=== PATIENT | male | born 1955 | race Caucasian/White ===

== ENCOUNTER 2019-09-09 15:02 | Observation (INO) | payer BC, OTHER ==
[2019-09-09 21:55] VITALS: RESP 16
[2019-09-10 11:46] VITALS: BP 106/58; PULSE 89; TEMP 98.2
== END 2019-09-10 16:30 | disposition home or self-care (01) ==
LOC: EC 15:02 → 5NMEDONC 15:48 → INTOOBSV 15:48 → 5NMEDONC 17:28 → UNDODISIN 09-10 16:30
PROVIDERS: ADMIT Internal Medicine; ATTEND Internal Medicine
DX: I69.398 Other sequelae of cerebral infarction (principal); G40.802 Other epilepsy, not intractable, without status epilepticus; I69.354 Hemiplegia and hemiparesis following cerebral infarction affecting left non-dominant side; I69.320 Aphasia following cerebral infarction; E87.1 Hypo-osmolality and hyponatremia; G93.89 Other specified disorders of brain; I10 Essential (primary) hypertension; E11.9 Type 2 diabetes mellitus without complications; E78.5 Hyperlipidemia, unspecified; E66.9 Obesity, unspecified; Z68.26 Body mass index [BMI] 26.0-26.9, adult; Z79.83 Long term (current) use of bisphosphonates; Z79.4 Long term (current) use of insulin; Z79.899 Other long term (current) drug therapy
CPT/HCPCS: 96374; 99285; 95816; 93005; 80048; 83036; G0378 ×2; 96360; 96361

== ENCOUNTER 2019-12-28 11:10 | Emergency (ER) | payer OTHER ==
[2019-12-28] MEDS ORDERED: SODIUM CHLORIDE 0.9% 1,000 ML IV STA (11:14)
--- NOTE | 2019-12-28 11:20 | ED ---
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 He is on Vimpat. This is his second seizure was tonic-clonic in nature unknown exactly how long it lasted. Patient seemed to be awake alert oriented 4 after the event per paramedics. He does complain some right-sided tongue pain as well as left shoulder pain. He does indicate that he bit his tongue. No reports of fevers chills nausea vomiting sweats he has been taking his medication last dose was at about 9:30 AM this morning. MD Complaint: seizure - Related Data Home Medications Medication Instructions Recorded Confirmed Alendronate Sodium [Fosamax] 70 mg PO MO 09/09/19 09/09/19 Atorvastatin [Lipitor] 20 mg PO HS 09/09/19 09/09/19 Gabapentin 600 mg PO TID PRN 09/09/19 09/09/19 HYDROcodone/APAP 5-325MG [[place] 1 tab PO TID PRN 09/09/19 09/09/19 5-325] Insulin Glargine,Hum.rec.anlog 40 unit SQ HS 09/09/19 09/09/19 [Basaglar Kwikpen U-100] Insulin Lispro [Admelog] 20 units SQ AC-TID 09/09/19 09/09/19 Lidocaine HCl [Aspercreme 1 applic TOPICAL DAILY PRN 09/09/19 09/09/19 Lidocaine] Lisinopril [Zestril] 10 mg PO DAILY 09/09/19 09/09/19 Multivitamins, Thera [Multivitamin 1 tab PO DAILY 09/09/19 09/09/19 (formulary)] Omeprazole 20 mg PO DAILY 09/09/19 09/09/19 Sertraline [Zoloft] 50 mg PO DAILY 09/09/19 09/09/19 sitaGLIPtin [Januvia] 50 mg PO DAILY 09/09/19 09/09/19 Previous Rx's Medication Instructions Recorded Lacosamide [Vimpat] 50 mg PO BID 30 Days #60 tab 09/10/19 Lacosamide [Vimpat] 150 mg PO BID #60 tablet 12/28/19 Allergies Allergy/AdvReac Type Severity Reaction Status Date / Time No Known Allergies Allergy Verified 12/28/19 11:23 Review of Systems ROS Statement: Those systems with pertinent positive or pertinent negative responses have been documented in the HPI. ROS Other: All systems not noted in ROS Statement are negative. Past Medical History Past Medical History: CVA/TIA, Diabetes Mellitus, Hypertension Additional Past Medical History / Comment(s): from pt record, unable to obtain verbally due to deficits from past CVA History of Any Multi-Drug Resistant Organisms: None Reported Additional Past Surgical History / Comment(s): unable to obtain due to past CVA Past Psychological History: Unable to Obtain Smoking Status: Never smoker Past Alcohol Use History: None Reported Past Drug Use History: None Reported - Past Family History Father Family Medical History: Unable to Obtain General Exam - General Exam Comments Initial Comments: This is a well-developed well-nourished awake alert oriented history male he does demonstrate stigmata of residual effects of stroke with slurred speech and left-sided weakness. Limitations: language barrier, physical limitation General appearance: alert, in no apparent distress Head exam: Present: atraumatic, normocephalic, normal inspection Eye exam: Present: normal appearance, PERRL, EOMI. Absent: scleral icterus, conjunctival injection, periorbital swelling ENT exam: Present: mucous membranes moist, other (Superficial abrasion and contusion to the right lateral tongue no active bleeding. Dentition intact.) Neck exam: Present: normal inspection, full ROM, other (Stridor JVD or bruits). Absent: tenderness, meningismus, lymphadenopathy Respiratory exam: Present: normal lung sounds bilaterally. Absent: respiratory distress, wheezes, rales, rhonchi, stridor Cardiovascular Exam: Present: regular rate, normal rhythm, normal heart sounds. Absent: systolic murmur, diastolic murmur, rubs, gallop, clicks GI/Abdominal exam: Present: soft, normal bowel sounds. Absent: distended, tenderness, guarding, rebound, rigid Extremities exam: Present: normal capillary refill. Absent: full ROM, tenderne ss, pedal edema, joint swelling, calf tenderness Back exam: Present: normal inspection Neurological exam: Present: alert, oriented X3, motor sensory deficit. Absent: CN II-XII intact Psychiatric exam: Present: normal affect, normal mood Skin exam: Present: warm, dry, intact, normal color. Absent: rash Course Vital Signs 12/28/19 12/28/19 12/28/19 11:23 11:45 12:27 Temperature 98.1 F Pulse Rate 118 H 112 H Respiratory 18 16 115 H Rate Blood Pressure 124/78 116/74 O2 Sat by Pulse 94 L 94 L 94 L Oximetry 12/28/19 12:34 Temperature Pulse Rate 115 H Respiratory 18 Rate Blood Pressure 121/77 O2 Sat by Pulse Oximetry Medical Decision Making - Medical Decision Making I did reevaluate patient several occasions did discuss the findings the patie nt's . Patient is awake alert and back to his baseline. I did discuss case also with Dr. Renteria. Patient will be given 200 mg of Vimpat in the emergency department and his dose he will be increased to 150 mg twice a day starting tomorrow. He is otherwise a follow-up with Dr. Farfan and return when necessary the presentation is consistent with a breakthrough seizure - Lab Data Result diagrams: 12/28/19 11:30 12/28/19 11:30 Lab Results 12/28/19 12/28/19 12/28/19 Range/Units 11:30 11:30 11:30 WBC 9.0 (3.8-10.6) k/uL RBC 5.44 (4.30-5.90) m/uL Hgb 17.0 (13.0-17.5) gm/dL Hct 52.4 (39.0-53.0) % MCV 96.2 (80.0-100.0) fL MCH 31.3 (25.0-35.0) pg MCHC 32.5 (31.0-37.0) g/dL RDW 12.7 (11.5-15.5) % Plt Count 218 (150-450) k/uL Neutrophils % 66 % Lymphocytes % 23 % Monocytes % 5 % Eosinophils % 4 % Basophils % 1 % Neutrophils # 6.0 (1.3-7.7) k/uL Lymphocytes # 2.1 (1.0-4.8) k/uL Monocytes # 0.4 (0-1.0) k/uL Eosinophils # 0.4 (0-0.7) k/uL Basophils # 0.1 (0-0.2) k/uL Sodium 136 L (137-145) mmol/L Potassium 5.3 H (3.5-5.1) mmol/L Chloride 103 (98-107) mmol/L Carbon Dioxide 15 L (22-30) mmol/L Anion Gap 18 mmol/L BUN 18 (9-20) mg/dL Creatinine 0.87 (0.66-1.25) mg/dL Est GFR (CKD-EPI)AfAm >90 (>60 ml/min/1.73 sqM) Est GFR (CKD-EPI)NonAf >90 (>60 ml/min/1.73 sqM) Glucose 204 H (74-99) mg/dL Calcium 9.9 (8.4-10.2) mg/dL Magnesium 2.2 (1.6-2.3) mg/dL Total Bilirubin 1.0 (0.2-1.3) mg/dL AST 43 (17-59) U/L ALT 32 (4-49) U/L Alkaline Phosphatase 67 (38-126) U/L Creatine Kinase 52 L (55-170) U/L Troponin I <0.012 (0.000-0.034) ng/mL Total Protein 8.2 (6.3-8.2) g/dL Albumin 4.9 (3.5-5.0) g/dL TSH 0.696 (0.465-4.680) mIU/L - EKG Data -: EKG Interpreted by Me EKG shows normal: sinus rhythm EKG Comments: Sinus tachycardia rate of 119. Interval 144 QRS duration 82 QT since QTC 320/450 nonspecific inferior configuration - Radiology Data Radiology results: report reviewed (I did review the imaging and report no acute findings.), image reviewed Disposition Clinical Impression: Generalized seizure Disposition: HOME SELF-CARE Condition: Good Instructions (If sedation given, give patient instructions): Recurrent Seizures in Adults (ED) Prescriptions: Lacosamide [Vimpat] 150 mg PO BID #60 tablet Is patient prescribed a controlled substance at d/c from ED?: No Referrals: Quin Gotti MD [Primary Care Provider] - 1-2 days Prudence Renteria MD [REFERRING] - 1-2 days
[2019-12-28 11:28] VITALS: TEMP 98.1
[2019-12-28 11:44] LABS: Basophils # (A) 0.1 k/uL (0-0.2); Basophils % (A) 1 %; Eosinophils # (A) 0.4 k/uL (0-0.7); Eosinophils % (A) 4 %; HCT 52.4 % (39.0-53.0); Lymphocytes # (A) 2.1 k/uL (1.0-4.8); Lymphocytes % (A) 23 %; MCH 31.3 pg (25.0-35.0); MCHC 32.5 g/dL (31.0-37.0); MCV 96.2 fL (80.0-100.0); Monocytes # (A) 0.4 k/uL (0-1.0); Monocytes % (A) 5 %; Neutrophils % (A) 66 %; Platelet Count 218 k/uL (150-450); RBC 5.44 m/uL (4.30-5.90); RDW 12.7 % (11.5-15.5)
--- NOTE | 2019-12-28 12:14 | CT ---
EXAMINATION TYPE: CT brain wo con DATE OF EXAM: 12/28/2019 COMPARISON: None HISTORY: Seizure activity CT DLP: 1095.4 mGycm Automated exposure control for dose reduction was used. FINDINGS: There is encephalomalacia of the right medial temporal lobe, insular cortex, right frontal lobe, and portions of the deep right parietal lobe with ex vacuo dilatation of the right lateral ventricle. Enc ephalomalacia also continues medially into the basal ganglia and internal capsule. No acute intracran ial hemorrhage is seen. Few scattered foci of hypoattenuation are seen within the left periventricula r white matter such as on image 34. These are most commonly on the basis of chronic microangiopathy. Atherosclerosis seen of the intracranial vasculature. Calvarium appears intact and paranasal sinuses are well aerated. IMPRESSION: 1. NO ACUTE INTRACRANIAL HEMORRHAGE. 2. ENCEPHALOMALACIA OF PORTIONS OF THE RIGHT HEMISPHERE DETAILED ABOVE INCLUDING THE RIGHT MEDIAL TEMPORAL LOBE.
[2019-12-28] MEDS ORDERED: HYDROmorphone 1 MG/ML 1 ML SYRINGE IVP STA (12:21)
[2019-12-28 12:25] LABS: ALT 32 U/L (4-49); AST 43 U/L (17-59); African American GFR (CKD) >90 (>60 ml/min/1.73 sqM); Albumin 4.9 g/dL (3.5-5.0); Alkaline Phosphatase 67 U/L (38-126); Anion Gap 18 mmol/L; Blood Urea Nitrogen 18 mg/dL (9-20); Calcium 9.9 mg/dL (8.4-10.2); Carbon Dioxide 15 mmol/L (22-30); Chloride 103 mmol/L (98-107); Creatine Kinase 52 U/L (55-170); Glucose 204 mg/dL (74-99); Magnesium 2.2 mg/dL (1.6-2.3); Non-African American GFR(CKD) >90 (>60 ml/min/1.73 sqM); Sodium 136 mmol/L (137-145); Total Protein 8.2 g/dL (6.3-8.2)
[2019-12-28] MEDS ORDERED: SODIUM CHLORIDE 0.9% 500 ML 500 ML IV ONE (12:28)
--- NOTE | 2019-12-28 12:28 | XR ---
EXAMINATION TYPE: XR shoulder complete BILAT DATE OF EXAM: 12/28/2019 CLINICAL HISTORY: Bilateral shoulder pain TECHNIQUE: Three views of the bilateral shoulders were obtained. COMPARISON: None. FINDINGS: There is no appreciable rotation of the humeral head on the internal and external views of the left shoulder concerning for a posterior shoulder dislocation in this patient with seizure. On th e scapular Y view there is a loose joint body seen. The right femoral head is of abnormal contour wit hout acute fracture or dislocation. Abnormal contour may be sequela of prior fracture. Mild degenerat yariel change of the acromioclavicular joints. The acromioclavicular and glenohumeral joint spaces appea r aligned. Low lung volumes are appreciated creating crowding of the pulmonary vasculature. IMPRESSION: Suspected posterior dislocation of the left shoulder with no appreciable rotation on inte rnal or external rotation views. Correlate with physical exam. Repeat radiographs could be performed of the left shoulder.
[2019-12-28 12:31] LABS: Potassium 5.3 mmol/L (3.5-5.1)
[2019-12-28] MEDS ORDERED: LACOSAMIDE 50 MG TABLET PO STA (13:50)
[2019-12-28 14:07] VITALS: BP 118/80; PULSE 110; RESP 16
== END 2019-12-28 14:32 | disposition home or self-care (01) ==
LOC: EC 11:10
DX: G40.89 Other seizures (principal); S00.532A Contusion of oral cavity, initial encounter; M25.512 Pain in left shoulder; E11.9 Type 2 diabetes mellitus without complications; I10 Essential (primary) hypertension; Z86.73 Personal history of transient ischemic attack (TIA), and cerebral infarction without residual deficits; Z79.4 Long term (current) use of insulin; Z79.899 Other long term (current) drug therapy
CPT/HCPCS: 36415; 93005; 80053; 84443; 82550; 83735; 84484; 85025; 73030; 70450; 99285; 96374; 96361 ×3; J1170

== ENCOUNTER 2021-07-22 19:58 | Inpatient (IN) | payer MEDICARE, OTHER ==
[2021-07-22] MEDS ORDERED: SODIUM CHLORIDE 0.9% 1,000 ML IV STA (21:19)
[2021-07-22] MEDS ORDERED: ACETAMINOPHEN TAB 325 MG TAB PO STA (21:22)
[2021-07-22 22:17] LABS: Basophils # (A) 0.1 k/uL (0-0.2); Basophils % (A) 1 %; Eosinophils % (A) 1 %; HCT 44.6 % (39.0-53.0); HGB 15.5 gm/dL (13.0-17.5); Lymphocytes # (A) 1.2 k/uL (1.0-4.8); Lymphocytes % (A) 14 %; MCH 31.4 pg (25.0-35.0); MCHC 34.8 g/dL (31.0-37.0); MCV 90.2 fL (80.0-100.0); Mean Platelet Volume 8.8; Monocytes # (A) 0.6 k/uL (0-1.0); Monocytes % (A) 7 %; Neutrophils # (A) 6.7 k/uL (1.3-7.7); Neutrophils % (A) 77 %; Platelet Count 192 k/uL (150-450); RBC 4.95 m/uL (4.30-5.90); RDW 12.8 % (11.5-15.5); WBC 8.7 k/uL (3.8-10.6)
[2021-07-22 22:25] LABS: INR 0.9 (<1.2); Prothrombin Time 9.9 sec (9.0-12.0)
[2021-07-22 22:36] LABS: ALT 70 U/L (4-49); AST 73 U/L (17-59); African American GFR (CKD) >90 (>60 ml/min/1.73 sqM); Alkaline Phosphatase 61 U/L (38-126); Anion Gap 12 mmol/L; Blood Urea Nitrogen 23 mg/dL (9-20); Calcium 9.2 mg/dL (8.4-10.2); Carbon Dioxide 25 mmol/L (22-30); Chloride 95 mmol/L (98-107); Glucose 256 mg/dL (74-99); Magnesium 2.1 mg/dL (1.6-2.3); Non-African American GFR(CKD) >90 (>60 ml/min/1.73 sqM); Sodium 132 mmol/L (137-145); Total Bilirubin 0.6 mg/dL (0.2-1.3); Total Protein 7.3 g/dL (6.3-8.2)
[2021-07-22 22:58] LABS: Potassium 4.8 mmol/L (3.5-5.1)
--- NOTE | 2021-07-22 23:01 | XR ---
EXAMINATION TYPE: XR chest 1V DATE OF EXAM: 07/22/2021 COMPARISON: NONE HISTORY: Short of breath TECHNIQUE: FINDINGS: There is pulmonary interstitial and airspace edema. Heart size is fairly normal. There are chest leads. IMPRESSION: Pulmonary edema that could relate to RDS or acute heart failure.
--- NOTE | 2021-07-23 00:28 | ED ---
General Adult HPI - General Chief complaint: Shortness of Breath Stated complaint: Covid +, PT non verbal waiting in car [phone] Time Seen by Provider: 07/22/21 20:59 Source: patient Mode of arrival: ambulatory Limitations: no limitations - History of Present Illness Initial comments: 65-year-old male presents to the emergency department requesting a monoclonal antibody infusion. Patient has a history of a CVA and is nonverbal therefore his spouse relays all communication. She states that he became symptomatic on Saturday with decreased appetite, fever, and occasional congested cough. Spouse states patient was Covid tested Saturday and was positive. States she spoke with his primary care provider who recommended she bring the patient to the ER for the infusion, though he is scheduled to receive it at home on Saturday. Spouse states she did not want the patient to have to wait that long. She denies any shortness of breath or difficulty breathing. States that he is more weak than usual. - Related Data Home Medications Medication Instructions Recorded Confirmed Alendronate Sodium [Fosamax] 70 mg PO MO 09/09/19 12/28/19 Atorvastatin [Lipitor] 20 mg PO HS 09/09/19 12/28/19 Gabapentin 600 mg PO TID PRN 09/09/19 12/28/19 HYDROcodone/APAP 5-325MG [[place] 1 tab PO TID PRN 09/09/19 12/28/19 5-325] Insulin Glargine,Hum.rec.anlog 40 unit SQ HS 09/09/19 12/28/19 [Basaglar Kwikpen U-100] Insulin Lispro [Admelog] 20 units SQ AC-TID 09/09/19 12/28/19 Multivitamins, Thera [Multivitamin 1 tab PO DAILY 09/09/19 12/28/19 (formulary)] Omeprazole 20 mg PO DAILY 09/09/19 12/28/19 Sertraline [Zoloft] 50 mg PO DAILY 09/09/19 12/28/19 lisinopriL [Zestril] 10 mg PO DAILY 09/09/19 12/28/19 sitaGLIPtin [Januvia] 50 mg PO DAILY 09/09/19 12/28/19 Dulaglutide [Trulicity] 0.5 mg SQ FR 12/28/19 12/28/19 Lacosamide [Vimpat] 100 mg PO BID 12/28/19 12/28/19 Previous Rx's Medication Instructions Recorded Lacosamide [Vimpat] 150 mg PO BID #60 tablet 12/28/19 Allergies Allergy/AdvReac Type Severity Reaction Status Date / Time No Known Allergies Allergy Verified 07/22/21 20:53 Review of Systems ROS Statement: Those systems with pertinent positive or pertinent negative responses have been documented in the HPI. ROS Other: All systems not noted in ROS Statement are negative. Past Medical History Past Medical History: CVA/TIA, Diabetes Mellitus, Hypertension Additional Past Medical History / Comment(s): from pt record, unable to obtain verbally due to deficits from past CVA History of Any Multi-Drug Resistant Organisms: None Reported Additional Past Surgical History / Comment(s): unable to obtain due to past CVA Past Psychological History: Unable to Obtain Smoking Status: Never smoker Past Alcohol Use History: None Reported Past Drug Use History: None Reported - Past Family History Father Family Medical History: Unable to Obtain General Exam Limitations: no limitations, language barrier (Patient is nonverbal due to CVA in 2018. Receptive language intact; expressively language impaired. Also has left-sided paralysis and left CVA.), physical limitation General appearance: alert, in no apparent distress Eye exam: Present: normal appearance, PERRL, EOMI. Absent: scleral icterus, conjunctival injection, periorbital swelling Neck exam: Present: normal inspection. Absent: tenderness, meningismus, lymphadenopathy Respiratory exam: Present: normal lung sounds bilaterally, other (Congested cough noted). Absent: respiratory distress, wheezes, rales, rhonchi, stridor Cardiovascular Exam: Present: regular rate, tachycardia GI/Abdominal exam: Present: soft, normal bowel sounds. Absent: distended, tenderness, guarding, rebound, rigid Left General: Present: other (Left-sided paralysis secondary to CVA in 2018) Vascular: Present: normal capillary refill, radial pulse. Absent: vascular compromise Left Neurovascular tendon exam: Present: no vascular compromise. Absent: abnormal cap refill Neurological exam: Present: alert Psychiatric exam: Present: normal affect, normal mood Skin exam: Present: warm, dry, other (Area of skin breakdown on coccyx) Course Vital Signs 07/22/21 07/22/21 07/22/21 20:47 21:06 22:55 Temperature 99.8 F H Pulse Rate 120 H 120 H 109 H Respiratory 24 23 Rate Blood Pressure 120/67 O2 Sat by Pulse 89 L 92 L 91 L Oximetry 07/22/21 07/23/21 23:49 01:23 Temperature 99.7 F H Pulse Rate 105 H 107 H Respiratory 18 18 Rate Blood Pressure 159/82 O2 Sat by Pulse 88 L 93 L Oximetry - Reevaluation(s) Reevaluation #1: 07/23/21 00:00 Spoke with patient and spouse at length about admission to the hospital due to hypoxia. Though they are hesitant, they are agreeable. Medical Decision Making - Medical Decision Making 65-year-old male with a history of seizures and CVA presents to the emergency department requesting monoclonal antibody infusion. Patient tested positive for Covid on Saturday, though symptoms began Saturday. On exam, patient is nonverbal and does nod his head in response to questions. Patient spouse explains the patient had a CVA affecting his expressive speech and his entire left side. Patient does not appear in any distress and has no increased work of breathing. Patient is tachycardic with a low-grade fever. Has a room air saturation of 88%. Patient is placed on 1 L oxygen nasal cannula and improved to 92%. Laboratory studies obtained show patient is mildly dehydrated. Patient is hyperglycemic, but has not received his evening dose of insulin. Rapid covid test is positive. Chest x-ray shows pulmonary edema. Patient was given Tylenol and IV fluids; remained somewhat tachycardic and febrile. Findings were reviewed with patient and significant other. Commended admission to the hospital. Significant other states she would much rather take him home however after much discussion, she is willing to have him admitted as long as she may remain at the bedside due to his speech impairment. Spoke with Dr. gipson who is agreeable to accepting this patient. Pulmonology was consulted and patient will be given Decadron drawn and albuterol. The patient's care was discussed with my attending Dr. Childers. - Lab Data Result diagrams: 07/22/21 21:54 07/22/21 21:54 Lab Results 07/16/21 07/22/21 07/22/21 Range/Units 21:54 21:54 21:54 WBC 8.7 (3.8-10.6) k/uL RBC 4.95 (4.30-5.90) m/uL Hgb 15.5 (13.0-17.5) gm/dL Hct 44.6 (39.0-53.0) % MCV 90.2 (80.0-100.0) fL MCH 31.4 (25.0-35.0) pg MCHC 34.8 (31.0-37.0) g/dL RDW 12.8 (11.5-15.5) % Plt Count 192 (150-450) k/uL MPV 8.8 Neutrophils % 77 % Lymphocytes % 14 % Monocytes % 7 % Eosinophils % 1 % Basophils % 1 % Neutrophils # 6.7 (1.3-7.7) k/uL Lymphocytes # 1.2 (1.0-4.8) k/uL Monocytes # 0.6 (0-1.0) k/uL Eosinophils # 0.0 (0-0.7) k/uL Basophils # 0.1 (0-0.2) k/uL PT 9.9 (9.0-12.0) sec INR 0.9 (<1.2) APTT 23.0 (22.0-30.0) sec Sodium (137-145) mmol/L Potassium (3.5-5.1) mmol/L Chloride (98-107) mmol/L Carbon Dioxide (22-30) mmol/L Anion Gap mmol/L BUN (9-20) mg/dL Creatinine (0.66-1.25) mg/dL Est GFR (CKD-EPI)AfAm (>60 ml/min/1.73 sqM) Est GFR (CKD-EPI)NonAf (>60 ml/min/1.73 sqM) Glucose (74-99) mg/dL Calcium (8.4-10.2) mg/dL Magnesium (1.6-2.3) mg/dL Total Bilirubin (0.2-1.3) mg/dL AST (17-59) U/L ALT (4-49) U/L Alkaline Phosphatase (38-126) U/L Lactate Dehydrogenase 982 H (313-618) U/L Troponin I (0.000-0.034) ng/mL C-Reactive Protein 6.8 H (<1.0) mg/dL Total Protein (6.3-8.2) g/dL Albumin (3.5-5.0) g/dL Coronavirus (PCR) (Not Detectd) 07/22/21 07/22/21 07/22/21 Range/Units 21:54 21:54 21:54 WBC (3.8-10.6) k/uL RBC (4.30-5.90) m/uL Hgb (13.0-17.5) gm/dL Hct (39.0-53.0) % MCV (80.0-100.0) fL MCH (25.0-35.0) pg MCHC (31.0-37.0) g/dL RDW (11.5-15.5) % Plt Count (150-450) k/uL MPV Neutrophils % % Lymphocytes % % Monocytes % % Eosinophils % % Basophils % % Neutrophils # (1.3-7.7) k/uL Lymphocytes # (1.0-4.8) k/uL Monocytes # (0-1.0) k/uL Eosinophils # (0-0.7) k/uL Basophils # (0-0.2) k/uL PT (9.0-12.0) sec INR (<1.2) APTT (22.0-30.0) sec Sodium 132 L (137-145) mmol/L Potassium 4.8 (3.5-5.1) mmol/L Chloride 95 L (98-107) mmol/L Carbon Dioxide 25 (22-30) mmol/L Anion Gap 12 mmol/L BUN 23 H (9-20) mg/dL Creatinine 0.66 (0.66-1.25) mg/dL Est GFR (CKD-EPI)AfAm >90 (>60 ml/min/1.73 sqM) Est GFR (CKD-EPI)NonAf >90 (>60 ml/min/1.73 sqM) Glucose 256 H (74-99) mg/dL Calcium 9.2 (8.4-10.2) mg/dL Magnesium 2.1 (1.6-2.3) mg/dL Total Bilirubin 0.6 (0.2-1.3) mg/dL AST 73 H (17-59) U/L ALT 70 H (4-49) U/L Alkaline Phosphatase 61 (38-126) U/L Lactate Dehydrogenase (313-618) U/L Troponin I <0.012 (0.000-0.034) ng/mL C-Reactive Protein (<1.0) mg/dL Total Protein 7.3 (6.3-8.2) g/dL Albumin 4.0 (3.5-5.0) g/dL Coronavirus (PCR) Detected A (Not Detectd) Disposition Clinical Impression: COVID-19, Hypoxia Disposition: ADMITTED IP TO THIS [facility] Condition: Serious Referrals: Quin Gotti MD [Primary Care Provider] - 1-2 days Decision Date: 07/23/21 Decision Time: 00:48
[2021-07-23 00:31] LABS: C Reactive Protein 6.8 mg/dL (<1.0)
[2021-07-23] MEDS ORDERED: DEXAMETHASONE SOD PHOSPHATE 10 MG/ML 1 ML VIAL IVP SCH (00:43)
[2021-07-23] MEDS ORDERED: NALOXONE 0.4 MG/ML 1 ML VIAL IV PRN (00:44)
[2021-07-23] MEDS ORDERED: IBUPROFEN 400 MG TAB PO PRN (00:44)
[2021-07-23] MEDS ORDERED: ACETAMINOPHEN TAB 325 MG TAB PO PRN (00:44)
[2021-07-23] MEDS ORDERED: DEXAMETHASONE SOD PHOSPHATE 10 MG/ML 1 ML VIAL IVP STA (00:56)
[2021-07-23] MEDS ORDERED: KETOROLAC 30 MG/ML 1 ML VIAL IVP STA (00:56)
[2021-07-23] MEDS: SODIUM CHLORIDE 0.9% 1,000 ML IV SCH ×2 (01:18→13:41)
[2021-07-23] MEDS: ALBUTEROL HFA INHALER INHALATION SCH ×5 (04:28→19:59)
[2021-07-23] MEDS: DEXAMETHASONE SOD PHOSPHATE 4 MG/ML 1 ML VIAL IVP SCH ×3 (06:39→17:44)
[2021-07-23 08:23] LABS: Glucose,Whole Blood 321 mg/dL (75-99)
[2021-07-23] MEDS: INSULIN ASPART (NovoLOG) 100 UNIT/ML VIAL SQ SCH ×4 (08:43→22:51)
[2021-07-23] MEDS ORDERED: ZINC SULFATE 220 MG CAP PO SCH (09:00)
[2021-07-23] MEDS ORDERED: CHOLECALCIFEROL 25 MCG (1000 IU) TABLET PO SCH (09:00)
[2021-07-23] MEDS ORDERED: ASCORBIC ACID 500 MG TAB PO SCH (09:00)
[2021-07-23] MEDS: ENOXAPARIN 40 MG/0.4 ML SYRINGE SQ SCH ×2 (11:05→13:36)
[2021-07-23] MEDS ORDERED: DOCUSATE 100 MG CAP PO SCH (11:25)
[2021-07-23] MEDS ORDERED: lisinopriL 10 MG TAB PO SCH (12:00)
[2021-07-23 12:37] LABS: Glucose,Whole Blood 356 mg/dL (75-99)
[2021-07-23] MEDS: DIVALPROEX SPRINKLE 125 MG CAP.SPRINK PO SCH ×2 (12:49→22:19)
--- NOTE | 2021-07-23 13:54 | P.CNPUL ---
History of Present Illness Consult date: 07/23/21 Requesting physician: Tyrone E Shlomo Reason for consult: dyspnea, abnormal CXR/CT Chief complaint: Shortness of breath, fever, fatigue poor appetite History of present illness: This is a 65-year-old male patient with a known history of previous CVA and seizure disorder, diabetes mellitus, hyperlipidemia, hypertension, chronic pain. He was brought into the emergency room last evening with worsening shortness of breath, fatigue and weakness. He developed fevers at home. He had a poor appetite. Loss of taste. He's been sick for 4-5 days prior to his arrival. He tested positive for COVID-19 on 07/21/2021. He is not vaccinated. He is seen today in the emergency room. Chest x-ray reveals bilateral pneumonia. Most the information is taken from his significant other who is present. They're hoping to get monoclonal antibodies yesterday but it got pushed back to tomorrow. Right now he is requiring 3 L of oxygen to maintain O2 saturations in the 90s. He has a 0.9 normal saline at KVO. White count 8.7. Hemoglobin 15.5. Sodium 132. Potassium 4.8. Creatinine 0.66. Glucose 256. LDH 982. C-reactive protein 6.8. AST 73. ALT 70. Matt virus positive by PCR. The patient been initiated on Lovenox, Decadron, vitamin supplements. Review of Systems REVIEW OF SYSTEMS: CONSTITUTIONAL: Positive for generalized weakness, fatigue, fevers Denies any recent significant weight loss or weight gain. EYES: Denies change in vision. EARS, NOSE, MOUTH, THROAT: Denies headaches, denies sore throat. CARDIOVASCULAR: Denies chest pain, palpitations or syncopal episodes. RESPIRATORY: Positive for shortness of breath, cough, congestion no hemoptysis. GASTROINTESTINAL: Positive for loss of appetite, denies abdominal pain GENITOURINARY: Denies hematuria, denies infections. MUSKULOSKELETAL: Denies pain, denies swelling. INTEGUMENTARY: Denies rash, denies eczema. NEUROLOGICAL: Denies recent memory loss, no recent seizure activity. PSYCHIATRIC: Denies anxiety, denies depression. HEMATOLOGIC/LYMPHATIC: Denies anemia, denies enlarged lymph nodes. Past Medical History Past Medical History: CVA/TIA, Diabetes Mellitus, Hypertension Additional Past Medical History / Comment(s): from pt record, unable to obtain verbally due to deficits from past CVA History of Any Multi-Drug Resistant Organisms: None Reported Additional Past Surgical History / Comment(s): unable to obtain due to past CVA Past Psychological History: Unable to Obtain Smoking Status: Never smoker Past Alcohol Use History: None Reported Past Drug Use History: None Reported - Past Family History Father Family Medical History: Unable to Obtain Medications and Allergies Home Medications Medication Instructions Recorded Confirmed Type Alendronate Sodium [Fosamax] 70 mg PO MO 09/09/19 07/23/21 History Atorvastatin [Lipitor] 20 mg PO HS@21309/09/19 07/23/21 History Gabapentin 600 mg PO DAILY@1500 09/09/19 07/23/21 History Insulin Glargine,Hum.rec.anlog 40 unit SQ HS 09/09/19 07/23/21 History [Basaglar Kwikpen U-100] Insulin Lispro [Admelog] See Protocol SQ AC-TID 09/09/19 07/23/21 History Multivitamins, Thera [Multivitamin 1 tab PO DAILY 09/09/19 07/23/21 History (formulary)] Omeprazole 20 mg PO DAILY@0930 09/09/19 07/23/21 History lisinopriL [Zestril] 10 mg PO DAILY@1200 09/09/19 07/23/21 History Ascorbic Acid [Vitamin C] 1,000 mg PO DAILY 07/23/21 07/23/21 History Cholecalciferol [Vitamin D3 (25 50 mcg PO DAILY 07/23/21 07/23/21 History Mcg = 1000 Iu)] Divalproex Sodium 125 mg PO BID@0930,0 07/23/21 07/23/21 History Docusate [Colace] 100 mg PO DAILY 07/23/21 07/23/21 History HYDROcodone/APAP 7.5-325MG [[place] 1 tab PO TID PRN 07/23/21 07/23/21 History 7.5-325] Lacosamide [Vimpat] 150 mg PO MOWEFR@0 07/23/21 07/23/21 History Lacosamide [Vimpat] 200 mg PO DAILY@0930 07/23/21 07/23/21 History Lacosamide [Vimpat] 200 mg PO SUTUTHSA@2130 07/23/21 07/23/21 History Turmeric Root Extract [Turmeric] 500 mg PO DAILY 07/23/21 07/23/21 History Zinc 50 mg PO DAILY 07/23/21 07/23/21 History sitaGLIPtin [Januvia] 100 mg PO DAILY@1200 07/23/21 07/23/21 History Allergies Allergy/AdvReac Type Severity Reaction Status Date / Time No Known Allergies Allergy Verified 07/23/21 08:58 Physical Exam Vitals: Vital Signs Temp Pulse Pulse Resp BP BP Pulse Ox 07/23/21 08:00 97.6 F 95 20 132/70 95 07/23/21 06:00 96 22 137/84 93 L 07/23/21 01:23 107 H 18 159/82 93 L 07/22/21 23:49 99.7 F H 105 H 18 88 L 07/22/21 22:55 109 H 23 91 L 07/22/21 21:06 120 H 92 L 07/22/21 20:47 99.8 F H 120 H 24 120/67 89 L Intake and Output 07/22/21 07/23/21 07/23/21 22:59 06:59 14:59 Other: Weight 72.575 kg GENERAL EXAM: Alert, weak, fatigued 65-year-old gentleman, fairly comfortable in no apparent distress. HEAD: Normocephalic. EYES: Normal reaction of pupils, equal size. NOSE: Clear with pink turbinates. THROAT: No erythema or exudates. NECK: No masses, no JVD. CHEST: No chest wall deformity. LUNGS: Equal air entry with crackles in the bilateral bases. CVS: S1 and S2 normal with no audible murmur, regular rhythm. ABDOMEN: No hepatosplenomegaly, normal bowel sounds, no guarding or rigidity. SPINE: No scoliosis or deformity SKIN: No rashes CENTRAL NERVOUS SYSTEM: No focal deficits, tone is normal in all 4 extremities. EXTREMITIES: There is no peripheral edema. No clubbing, no cyanosis. Peripheral pulses are intact. Results - Laboratory Findings CBC and BMP: 07/22/21 21:54 07/22/21 21:54 PT/INR, D-dimer PT 9.9 sec (9.0-12.0) 07/22/21 21:54 INR 0.9 (<1.2) 07/22/21 21:54 Abnormal lab findings: Abnormal Labs 07/16/21 07/22/21 07/22/21 21:54 21:54 21:54 Sodium 132 L Chloride 95 L BUN 23 H Glucose 256 H POC Glucose (mg/dL) AST 73 H ALT 70 H Lactate Dehydrogenase 982 H C-Reactive Protein 6.8 H Coronavirus (PCR) Detected A 07/23/21 07/23/21 08:21 12:36 Sodium Chloride BUN Glucose POC Glucose (mg/dL) 321 H 356 H AST ALT Lactate Dehydrogenase C-Reactive Protein Coronavirus (PCR) - Diagnostic Findings Chest x-ray: image reviewed Assessment and Plan Assessment: 1 Acute hypoxemic respiratory failure secondary to acute COVID-19 pneumonia. Symptoms started 5 days ago. Not vaccinated. 2 Elevated inflammatory markers secondary to above 3 History of CVA 4 History of seizures 5 Diabetes mellitus 6 Hypertension 7 Hyperlipidemia 8 Poor functional performance Plan: The patient was seen and evaluated by Dr. Baker Chest x-ray and labs reviewed He would be a candidate for Remdesivir Continue Decadron, Lovenox, vitamin supplements However, his significant other plans on taking him home today Chest x-ray does reveal significant bilateral pneumonia He is not cleared for discharge from the pulmonary standpoint We will continue to follow and make further recommendations based on his clinical status I, the cosigning physician, performed a history & physical examination of the patient. Lungs sounds coarse crackles in the bilateral bases. Maintaining good O2 saturations in the 90s on 3 L/m per nasal cannula. I discussed the asse ssment and plan of care with my nurse practitioner, Eugenia Draper. I attest to the above consultation as dictated by her. Time with Patient: Greater than 30
[2021-07-23] MEDS ORDERED: GABAPENTIN 300 MG CAP PO SCH (15:00)
[2021-07-23 15:01] VITALS: RESP 18; TEMP 97.8
[2021-07-23] MEDS ORDERED: INSULIN ASPART (NovoLOG) 100 UNIT/ML VIAL SQ SCH (17:30)
[2021-07-23] MEDS: HYDROcodone/APAP 7.5-325MG 1 EACH TAB PO PRN (17:43)
[2021-07-23 17:48] LABS: Glucose,Whole Blood 259 mg/dL (75-99)
--- NOTE | 2021-07-23 20:13 | P.HPIM ---
History of Present Illness This is a pleasant 65 years old male with past medical history of CVA/TIA, Diabetes Mellitus, Hypertension. Patient follows up with Dr. Gotti. He has history of hemorrhagic stroke in 2018, he has severe aphasia, he cannot talk and severe right sided hemiparesis 50 needing assistance. at bedside. states that patient started having symptoms like low appetite last Saturday about 4 days ago and it is a colostomy was then he was diagnosed positive for Covid with [id number] test while his tested negative. They contacted his PCP Dr. Gotti who advised them to get antibody infusion therapy, herself is so convinced with this therapy stating that all her cousins benefited from such treatment, because it was weakened she decided to call EMS and come to emergency room to get antibody infusion. Patient was found to be hypoxemic needing 3 L/m of oxygen with bilateral pneumonia. His Covid test was positive. And he was started on appropriate treatment of dexamethasone, vitamin C, vitamin D and zinc per protocol as well as normal saline at 75 mL/h. However stated that she wants him to be discharged today, I explained to the patient and at bedside patient is not medically stable for discharge as he is still symptomatic and hypoxic with positive chest and it's just start treatment and his oxygen saturation might worsen. She agrees to stay till tomorrow. Patient patient and his were advised against leaving AMA and risks are explained to them extensively, the verbalized understanding Lovenox was started by pulmonary team for prophylaxis. Benefits and Risks anticoagulation with bleeding including but not limited to the brain of bleeding are explained to the patient and , she verbalized understanding and acceptance Patient was hypoxic at 88% on room air, currently 95% on 1 L. He had low-grade fever at 99.7. To 99.8 INR is 0.9. Sodium 132, glucose 256, liver enzymes slightly elevated AST 73 and ALT 70. Inflammatory markers increased with LDH 982 and CRP 6.8 Matt virus detected EKG showing sinus tachycardia at 114. Chest x-ray: Pulmonary edema that could relate to RDS or acute heart failure radiologist, however when I review the chest x-ray by myself looks more like bilateral pneumonia. Review of Systems CONSTITUTIONAL: No fever, no malaise, no fatigue. HEENT: No recent visual problems or hearing problems. Denied any sore throat. CARDIOVASCULAR: No orthopnea, PND, no palpitations, no syncope. PULMONARY: No shortness of breath, no cough, no hemoptysis. GASTROINTESTINAL: No diarrhea, no nausea, no vomiting, no abdominal pain. Normoactive bowel sounds. NEUROLOGICAL: No headaches, no weakness, no numbness. HEMATOLOGICAL: Denies any bleeding or petechiae. GENITOURINARY: Denies any burning micturition, frequency, or urgency. MUSCULOSKELETAL/RHEUMATOLOGICAL: Denies any joint pain, swelling, or any muscle pain. ENDOCRINE: Denies any polyuria or polydipsia. Past Medical History Past Medical History: CVA/TIA, Diabetes Mellitus, Hypertension Additional Past Medical History / Comment(s): from pt record, unable to obtain verbally due to deficits from past CVA History of Any Multi-Drug Resistant Organisms: None Reported Additional Past Surgical History / Comment(s): unable to obtain due to past CVA Past Psychological History: Unable to Obtain Smoking Status: Never smoker Past Alcohol Use History: None Reported Past Drug Use History: None Reported - Past Family History Father Family Medical History: Unable to Obtain Medications and Allergies Home Medications Medication Instructions Recorded Confirmed Type Alendronate Sodium [Fosamax] 70 mg PO MO 09/09/19 07/23/21 History Atorvastatin [Lipitor] 20 mg PO HS@2130 09/09/19 07/23/21 History Gabapentin 600 mg PO DAILY@1500 09/09/19 07/23/21 History Insulin Glargine,Hum.rec.anlog 40 unit SQ HS 09/09/19 07/23/21 History [[place] U-100] Insulin Lispro [Admelog] See Protocol SQ AC-TID 09/09/19 07/23/21 History Multivitamins, Thera [Multivitamin 1 tab PO DAILY 09/09/19 07/23/21 History (formulary)] Omeprazole 20 mg PO DAILY@0930 09/09/19 07/23/21 History lisinopriL [Zestril] 10 mg PO DAILY@1200 09/09/19 07/23/21 History Ascorbic Acid [Vitamin C] 1,000 mg PO DAILY 07/23/21 07/23/21 History Cholecalciferol [Vitamin D3 (25 50 mcg PO DAILY 07/23/21 07/23/21 History Mcg = 1000 Iu)] Divalproex Sodium 125 mg PO BID@0930,2130 07/23/21 07/23/21 History Docusate [Colace] 100 mg PO DAILY 07/23/21 07/23/21 History HYDROcodone/APAP 7.5-325MG [[place] 1 tab PO TID PRN 07/23/21 07/23/21 History 7.5-325] Lacosamide [Vimpat] 150 mg PO MOWEFR@212907/23/21 07/23/21 History Lacosamide [Vimpat] 200 mg PO DAILY@0930 07/23/21 07/23/21 History Lacosamide [Vimpat] 200 mg PO SUTUTHSA@212907/23/21 07/23/21 History Turmeric Root Extract [Turmeric] 500 mg PO DAILY 07/23/21 07/23/21 History Zinc 50 mg PO DAILY 07/23/21 07/23/21 History sitaGLIPtin [Januvia] 100 mg PO DAILY@1200 07/23/21 07/23/21 History Allergies Allergy/AdvReac Type Severity Reaction Status Date / Time No Known Allergies Allergy Verified 07/23/21 08:58 Physical Exam Vitals: Vital Signs Temp Pulse Pulse Resp BP BP Pulse Ox 07/23/21 08:00 97.6 F 95 20 132/70 95 07/23/21 06:00 96 22 137/84 93 L 07/23/21 01:23 107 H 18 159/82 93 L 07/22/21 23:49 99.7 F H 105 H 18 88 L 07/22/21 22:55 109 H 23 91 L 07/22/21 21:06 120 H 92 L 07/22/21 20:47 99.8 F H 120 H 24 120/67 89 L Intake and Output 07/22/21 07/23/21 07/23/21 22:59 06:59 14:59 Other: Weight 72.575 kg -GENERAL: The patient is non-verbal at baseline, mildly tachypneic. Well developed, well nourished. HEENT: Pupils are round and equally reacting to light. EOMI. No scleral icterus. No conjunctival pallor. Normocephalic, atraumatic. No pharyngeal erythema. No thyromegaly. CARDIOVASCULAR: S1 and S2 present. No murmurs, rubs, or gallops. PULMONARY: Chest is clear to auscultation, no wheezing or crackles. ABDOMEN: Soft, nontender, nondistended, normoactive bowel sounds. No palpable organomegaly. MUSCULOSKELETAL: No joint swelling or deformity. EXTREMITIES: No cyanosis, clubbing, or pedal edema. -NEUROLOGICAL: Severe aphasia, severe right hemiparesis SKIN: No rashes. No petechiae Results CBC & Chem 7: 07/22/21 21:54 07/22/21 21:54 Labs: Abnormal Lab Results - Last 24 Hours (Table) 07/16/21 07/22/21 07/22/21 Range/Units 21:54 21:54 21:54 Sodium 132 L (137-145) mmol/L Chloride 95 L (98-107) mmol/L BUN 23 H (9-20) mg/dL Glucose 256 H (74-99) mg/dL POC Glucose (mg/dL) (75-99) mg/dL AST 73 H (17-59) U/L ALT 70 H (4-49) U/L Lactate Dehydrogenase 982 H (313-618) U/L C-Reactive Protein 6.8 H (<1.0) mg/dL Coronavirus (PCR) Detected A (Not Detectd) 07/23/21 Range/Units 08:21 Sodium (137-145) mmol/L Chloride (98-107) mmol/L BUN (9-20) mg/dL Glucose (74-99) mg/dL POC Glucose (mg/dL) 321 H (75-99) mg/dL AST (17-59) U/L ALT (4-49) U/L Lactate Dehydrogenase (313-618) U/L C-Reactive Protein (<1.0) mg/dL Coronavirus (PCR) (Not Detectd) Assessment and Plan Assessment: Bilateral Covid pneumonia Acute hypoxic respiratory failure Increased inflammatory markers Diabetes mellitus Hypertension History of hemorrhagic CVA Plan: This is a pleasant 65 years old male who presents with covid pneumonia Continue with dexamethasone Continue with vitamin C, vitamin D and zinc Pulmonary consult . Further Treatment per Pulmonary team Continue gentle hydration Labs and medication were reviewed.. Continue same treatment. Continue with symptomatic treatment. Resume home medication. Monitor lytes and vitals. DVT and GI prophylaxis. Further recommendations depends on the clinical course of the patient DVT prophylaxis: Subcutaneous Lovenox GI Prophylaxis: Pepcid Prognosis is guarded
[2021-07-23] MEDS ORDERED: INSULIN DETEMIR (LEVEMIR) 100 UNIT/ML SYR SQ SCH (21:00)
[2021-07-23] MEDS ORDERED: FAMOTIDINE 20 MG/2 ML VIAL IV SCH (21:00)
[2021-07-23] MEDS ORDERED: LACOSAMIDE 50 MG TABLET PO SCH (21:30)
[2021-07-23] MEDS ORDERED: ATORVASTATIN 20 MG TAB PO SCH (21:30)
[2021-07-23 22:42] LABS: Glucose,Whole Blood 256 mg/dL (75-99)
[2021-07-24] MEDS: DEXAMETHASONE SOD PHOSPHATE 4 MG/ML 1 ML VIAL IVP SCH ×2 (00:29→06:16)
[2021-07-24] MEDS: HYDROcodone/APAP 7.5-325MG 1 EACH TAB PO PRN (06:20)
[2021-07-24] MEDS: ALBUTEROL HFA INHALER INHALATION SCH (08:01)
[2021-07-24] MEDS ORDERED: NON FORMULARY DRUG (Alendronate Sodium [Fosamax] 70 MG Tablet) PO SCH (09:00)
[2021-07-24] MEDS ORDERED: MULTIVITAMINS, THERA 1 EACH TAB PO SCH (09:00)
[2021-07-24 09:08] VITALS: BP 135/79; PULSE 97
[2021-07-24] MEDS ORDERED: LACOSAMIDE 50 MG TABLET PO SCH (09:30)
[2021-07-24] MEDS ORDERED: LINAGLIPTIN 5 MG TABLET PO SCH (12:00)
[2021-07-24] MEDS ORDERED: LACOSAMIDE 150 MG TABLET PO SCH (21:30)
== END 2021-07-24 09:27 | disposition left against medical advice (07) | DRG 177 ==
LOC: EC 19:58 → 4SSUR 07-23 01:21
PROVIDERS: ADMIT Internal Medicine; ATTEND Internal Medicine
PROC: 3E0F7SF Introduction of Other Gas into Respiratory Tract, Via Natural or Artificial Opening (ICD-10-PCS; principal; 2021-07-23)
DX: U07.1 COVID-19 (principal); J96.01 Acute respiratory failure with hypoxia; J12.82 Pneumonia due to coronavirus disease 2019; I69.351 Hemiplegia and hemiparesis following cerebral infarction affecting right dominant side; E11.65 Type 2 diabetes mellitus with hyperglycemia; I50.9 Heart failure, unspecified; G40.909 Epilepsy, unspecified, not intractable, without status epilepticus; I11.0 Hypertensive heart disease with heart failure; E86.0 Dehydration; R00.0 Tachycardia, unspecified; G89.29 Other chronic pain; E78.5 Hyperlipidemia, unspecified; Z79.4 Long term (current) use of insulin; Z79.83 Long term (current) use of bisphosphonates; Z79.899 Other long term (current) drug therapy; Z93.3 Colostomy status
CPT/HCPCS: 36415; 71045; 80053; 83615; 83735; 84484; 85025; 85610; 85730; 86140; 87040; 87635; 93005; 94640; 99285